=== PATIENT | female | born 1995 | race African-American/Black ===

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

== ENCOUNTER 2017-02-03 11:55 | Emergency (ER) | payer OTHER ==
[~2017-02-03] VITALS: Ht 154.9 cm; Wt 62.5 kg
[~2017-02-03 11:55] MED LIST changes: +ASPIRIN EC325 MG PO; +ATORVASTATIN CA10 MG PO; +CALCIUM CARBON260 MG PO; +COLACE100 MG PO; +HYDROMORPHONE HC2 MG PO; +PANTOPRAZOLE SO40 MG PO; +[UNRECOGNIZED DRUG - OTHER] PO
[2017-02-03 13:06] LABS: HEMATOCRIT 38.1 % (36.0-46.0); MCH 26.6 PG (29.0-34.0); MCHC 32.3 G/DL (30.0-36.0); MCV 82.3 FL (83-99); MEAN PLAT.VOLUME 10.6 uM^3 (9.5-12.4); PLATELET COUNT 216 K/uL (156-360); RBC DIS.WIDTH-CV 16.4 % (11.8-14.6); RED BLOOD COUNT 4.63 M/uL (3.80-5.20); WHITE BLOOD COUNT 6.6 K/uL (4.1-10.2)
[2017-02-03 13:15] LABS: CHLORIDE 107 mEq/L (99-109); SODIUM 138 mEq/L (136-147)
[2017-02-03 13:16] LABS: GLUCOSE 95 mg/dL (70-99)
[2017-02-03 13:18] LABS: ANION GAP 9 MEQ/L (2-14)
[2017-02-03 13:20] LABS: GFR ESTIMATE (CALCULATED) > 59 mL/min/
[2017-02-03 13:21] LABS: UREA NITROGEN (BUN) 12 mg/dL (9-23)
[2017-02-03 13:28] LABS: TROP-I INTERPRETATION NEGATIVE; TROPONIN-I < 0.01 ng/mL (0.0-0.30)
[2017-02-03] MEDS ORDERED: TYLENOL WITH C1 EACH PO (13:36)
[2017-02-03 14:31] VITALS: BP 103/65
== END 2017-02-03 14:32 | disposition home or self-care (01) ==
LOC: EME 11:55
PROVIDERS: Emergency Medicine
DX: M94.0 Chondrocostal junction syndrome [Tietze] (principal); R05 Cough; R51 Headache; S16.1XXA Strain of muscle, fascia and tendon at neck level, initial encounter; X58.XXXA Exposure to other specified factors, initial encounter; R42 Dizziness and giddiness; R11.0 Nausea; Z98.890 Other specified postprocedural states; Z95.4 Presence of other heart-valve replacement; J45.909 Unspecified asthma, uncomplicated; Z79.82 Long term (current) use of aspirin
CPT/HCPCS: 71020; 80048; 84484; 85027; 85379; 93005; 99281; 99285

== ENCOUNTER 2017-09-17 14:00 | Emergency (ER) | payer OTHER ==
[~2017-09-17] VITALS: Ht 154.9 cm; Wt 74.0 kg
[~2017-09-17 14:00] MED LIST changes: +TYLENOL WITH C1 EACH PO
[2017-09-17 15:08] LABS: HEMATOCRIT 38.5 % (36.0-46.0); MCH 30.2 PG (29.0-34.0); MCHC 33.8 G/DL (30.0-36.0); MCV 89.3 FL (83-99); PLATELET COUNT 169 K/uL (156-360); RBC DIS.WIDTH-CV 13.2 % (11.8-14.6); RBC DIS.WIDTH-SD 43.8 % (39-53); RED BLOOD COUNT 4.31 M/uL (3.80-5.20); WHITE BLOOD COUNT 6.9 K/uL (4.1-10.2)
[2017-09-17 15:20] LABS: CHLORIDE 110 mEq/L (99-109); POTASSIUM 4.2 mEq/L (3.7-5.4); SODIUM 140 mEq/L (136-147)
[2017-09-17 15:21] LABS: GLUCOSE 96 mg/dL (70-99)
[2017-09-17 15:25] LABS: CREATININE 0.8 mg/dL (0.6-1.3); GFR ESTIMATE (CALCULATED) > 59 mL/min/
[2017-09-17 15:26] LABS: UREA NITROGEN (BUN) 9 mg/dL (9-23)
[2017-09-17 15:33] LABS: TROP-I INTERPRETATION NEGATIVE; TROPONIN-I < 0.01 ng/mL (0.0-0.30)
[2017-09-17 17:09] LABS: APPEARANCE CLOUDY ((CLEAR)); BILIRUBIN NEGATIVE; BLOOD SMALL; COLOR YELLOW ((YELLOW)); GLUCOSE (STRIP) NEGATIVE; KETONES NEGATIVE; LEUKOCYTES LARGE; NITRITE POSITIVE; PROTEIN (STRIP) 30; SPECIFIC GRAVITY 1.019 (1.000-1.030)
[2017-09-17 17:36] LABS: RED BLOOD CELLS 0-5 /HPF (0-5)
[2017-09-17 17:37] LABS: BACTERIA 3+ /HPF; EPITHELIAL CELLS RARE /HPF; MUCUS TRACE /LPF; UCUL ADDED? YES; WHITE BLOOD CELLS 40-50 /HPF (0-5)
[2017-09-17 17:47] LABS: QUANTITATIVE HCG < 4.0 MIU/ML
[2017-09-17 19:48] LABS: ALBUMIN 4.3 g/dL (3.2-4.8)
[2017-09-17 19:48] LABS: TROP-I INTERPRETATION NEGATIVE; TROPONIN-I < 0.01 ng/mL (0.0-0.30)
[2017-09-17 19:51] LABS: TOTAL PROTEIN 7.7 g/dL (6.4-8.3)
[2017-09-17 19:53] LABS: TOTAL BILIRUBIN 0.6 mg/dL (0.0-1.0)
[2017-09-17 19:54] LABS: ALKALINE PHOSPHATASE 87 IU/L (3-129)
[2017-09-17 19:56] LABS: AST (GOT) 20 IU/L (2-34)
[2017-09-17 19:57] LABS: ALT (GPT) 16 IU/L (3-49); DIRECT BILIRUBIN 0.3 mg/dL (0.0-0.3)
[2017-09-17] MEDS ORDERED: KEFLEX500 MG PO (20:50)
[2017-09-17 21:00] VITALS: BP 119/75
== END 2017-09-17 21:02 | disposition home or self-care (01) ==
LOC: EME 14:00
PROVIDERS: Physician Assistant Medical
DX: R07.9 Chest pain, unspecified (principal); N39.0 Urinary tract infection, site not specified; Z95.2 Presence of prosthetic heart valve; J45.909 Unspecified asthma, uncomplicated; Z79.82 Long term (current) use of aspirin; F32.9 Major depressive disorder, single episode, unspecified
CPT/HCPCS: 71046; 71275; 80048; 80076; 81003; 84484; 84702; 85027; 85379; 87077; 87086; 87186; 93005; 99281; 99285; J7030